=== PATIENT | male | born 1965 | race Hispanic/Latino ===

== ENCOUNTER 2021-07-10 08:54 | Inpatient (IN) | payer OTHER ==
[~2021-07-10] VITALS: Ht 177.8 cm; Wt 95.3 kg
[2021-07-10] VITALS (7 sets, daily range): BP systolic 119–127; BP diastolic 66–76
[2021-07-10 10:04] LABS: BASOPHILS % 0.4 % (0.0-1.0); EOSINOPHILS # (AUTO) 0.1 (0.0-0.4); EOSINOPHILS % 0.5 % (0.0-6.0); HEMATOCRIT 40.9 % (38.2-49.6); HEMOGLOBIN 13.7 g/dL (14.0-18.0); LYMPHOCYTES # (AUTO) 1.7 (1.0-3.2); LYMPHOCYTES % 16.3 % (18.0-39.1); MEAN CORPUSCULAR HEMOGLOBIN 31.8 pg (28-32); MEAN CORPUSCULAR HGB CONC 33.5 g/dL (31-35); MEAN CORPUSCULAR VOLUME 94.9 fL (81-99); MONOCYTES # (AUTO) 0.8 (0.2-0.8); MONOCYTES % 7.7 % (4.4-11.3); NEUTROPHILS % 74.7 % (38.7-80.0); PLATELET COUNT 253 x10e3/uL (140-360); RED BLOOD COUNT 4.31 x10e6/uL (4.3-5.7); RED CELL DISTRIBUTION WIDTH 11.7 % (11.7-14.4)
[2021-07-10 10:19] LABS: ANION GAP 10.6 mmol/L (8-16); CALCIUM 8.5 mg/dL (8.4-10.2); CREATININE, SERUM 0.98 mg/dL (0.72-1.25); POTASSIUM 3.6 mmol/L (3.5-5.1)
[2021-07-10] MEDS ORDERED: Vancomycin IV 1 GM in SODIUM CHLORIDE 0.9% 250ML 250 ML IV ONE (12:15)
[2021-07-10] MEDS: SODIUM CHLORIDE 0.9% 1000ML 1,000 ML IV SCH ×2 (12:28→20:00)
[2021-07-10] MEDS: Morphine 4mg Syringe 4 MG/ML INJ IV PRN ×2 (12:28→21:17)
[2021-07-10] MEDS: ONDANSETRON HCL INJ 2MG/ML 2ML 2 MG/ML VIAL IV PRN ×2 (12:29→21:14)
[2021-07-10] MEDS ORDERED: CEFUROXIME250 MG PO (14:44)
[2021-07-11] VITALS (7 sets, daily range): BP systolic 108–134; BP diastolic 68–86
[2021-07-11] MEDS: SODIUM CHLORIDE 0.9% 1000ML 1,000 ML IV SCH ×3 (02:03→20:00)
[2021-07-11 05:02] LABS: BASOPHILS # (AUTO) 0.1 (0.0-0.1); BASOPHILS % 0.5 % (0.0-1.0); EOSINOPHILS # (AUTO) 0.2 (0.0-0.4); EOSINOPHILS % 1.5 % (0.0-6.0); HEMATOCRIT 39.5 % (38.2-49.6); LYMPHOCYTES % 18.4 % (18.0-39.1); MEAN CORPUSCULAR HEMOGLOBIN 31.3 pg (28-32); MEAN CORPUSCULAR HGB CONC 32.9 g/dL (31-35); MEAN CORPUSCULAR VOLUME 95.2 fL (81-99); MONOCYTES # (AUTO) 1.2 (0.2-0.8); MONOCYTES % 10.7 % (4.4-11.3); NEUTROPHILS # (AUTO) 7.3 (2.1-6.9); NEUTROPHILS % 68.3 % (38.7-80.0); PLATELET COUNT 249 x10e3/uL (140-360); RED BLOOD COUNT 4.15 x10e6/uL (4.3-5.7); RED CELL DISTRIBUTION WIDTH 11.5 % (11.7-14.4)
[2021-07-11 06:06] LABS: ANION GAP 9.5 mmol/L (8-16); CREATININE, SERUM 0.94 mg/dL (0.72-1.25); POTASSIUM 3.5 mmol/L (3.5-5.1)
[2021-07-11 06:28] LABS: CHOL/HDL RATIO 3.4 (3.9-4.7)
[2021-07-11] MEDS: GLIMEPIRIDE 2 MG TAB PO SCH (08:36)
[2021-07-11] MEDS: INSULIN LISPRO 100 UNIT/1 ML 3ML VIAL SQ SCH ×3 (11:58→21:00)
[2021-07-11 19:07] LABS: BASOPHILS # (AUTO) 0.1 (0.0-0.1); BASOPHILS % 0.7 % (0.0-1.0); EOSINOPHILS # (AUTO) 0.2 (0.0-0.4); EOSINOPHILS % 1.8 % (0.0-6.0); HEMATOCRIT 39.9 % (38.2-49.6); LYMPHOCYTES # (AUTO) 2.1 (1.0-3.2); LYMPHOCYTES % 20.7 % (18.0-39.1); MEAN CORPUSCULAR HEMOGLOBIN 31.4 pg (28-32); MEAN CORPUSCULAR HGB CONC 32.6 g/dL (31-35); MEAN CORPUSCULAR VOLUME 96.4 fL (81-99); MONOCYTES # (AUTO) 0.9 (0.2-0.8); MONOCYTES % 9.2 % (4.4-11.3); NEUTROPHILS # (AUTO) 6.9 (2.1-6.9); NEUTROPHILS % 67.3 % (38.7-80.0); PLATELET COUNT 285 x10e3/uL (140-360); RED BLOOD COUNT 4.14 x10e6/uL (4.3-5.7); RED CELL DISTRIBUTION WIDTH 11.7 % (11.7-14.4)
[2021-07-11 19:18] LABS: INR 1.05; PROTHROMBIN TIME 14.6 seconds (11.9-14.5)
[2021-07-11 19:19] LABS: PARTIAL THROMBOPLASTIN TIME 29.3 seconds (23.8-35.5)
[2021-07-11 19:27] LABS: ALBUMIN 2.5 g/dL (3.5-5.0); ALBUMIN/GLOBULIN RATIO 0.6 (0.8-2.0); ANION GAP 13.6 mmol/L (8-16); CALCIUM 8.1 mg/dL (8.4-10.2); CREATININE, SERUM 0.99 mg/dL (0.72-1.25); POTASSIUM 3.6 mmol/L (3.5-5.1)
[2021-07-11] MEDS ORDERED: ENOXAPARIN SOD INJ 40 MG/0.4 ML SYR SC STA (23:40)
[2021-07-12] VITALS (8 sets, daily range): BP systolic 118–139; BP diastolic 71–86
[2021-07-12] MEDS: ACETAMINOPHEN 325 MG TAB PO PRN (00:21)
[2021-07-12] MEDS: SODIUM CHLORIDE 0.9% 1000ML 1,000 ML IV SCH ×3 (04:00→20:27)
[2021-07-12] MEDS: INSULIN LISPRO 100 UNIT/1 ML 3ML VIAL SQ SCH ×4 (07:30→21:00)
[2021-07-12] MEDS: GLIMEPIRIDE 2 MG TAB PO SCH (08:00)
[2021-07-12] MEDS: Morphine 4mg Syringe 4 MG/ML INJ IV PRN (08:48)
[2021-07-12] MEDS: ONDANSETRON HCL INJ 2MG/ML 2ML 2 MG/ML VIAL IV PRN ×2 (08:48→13:35)
[2021-07-12] MEDS ORDERED: SEVOFLURANE INHAL SOLN 250 ML PEN BTL ONE (12:20)
[2021-07-12] MEDS ORDERED: PROPOFOL IV EMULSION 10 MG/ML 20 ML VIAL ONE (12:20)
[2021-07-12] MEDS ORDERED: DEXAMETHASONE SOD PHOS INJ 4 MG/ML SDV ONE (12:20)
[2021-07-12] MEDS ORDERED: POVIDONE IODINE 0.05% 0.05 % ML PO ONE (12:20)
[2021-07-12] MEDS ORDERED: ONDANSETRON HCL INJ 2MG/ML 2ML 2 MG/ML VIAL ONE (12:20)
[2021-07-12] MEDS ORDERED: FENTANYL CITRATE/PF 100MCG/2 ML INJ ONE (13:05)
[2021-07-12] MEDS ORDERED: MIDAZOLAM HCL 2 MG/2 ML VIAL ONE (13:05)
[2021-07-12] MEDS ORDERED: Vancomycin IV 1 GM VIAL ONE ×6 (17:11→18:48)
[2021-07-12] MEDS ORDERED: SODIUM CHLORIDE 0.9% 250ML 0 ML ONE (17:11)
[2021-07-12] MEDS ORDERED: SODIUM CHLORIDE 0.9% 250ML 250 ML ONE (19:11)
[2021-07-12] MEDS ORDERED: HYDROCODONE/APAP 5MG-325MG TAB PO PRN ×2 (19:30→20:30)
[2021-07-12] MEDS ORDERED: HYDROMORPHONE 1MG/1ML INJ ONE (19:40)
[2021-07-12] MEDS ORDERED: HYDROCODONE/APAP 10MG-325MG TAB PO PRN (20:30)
[2021-07-13] VITALS (7 sets, daily range): BP systolic 119–129; BP diastolic 71–81
[2021-07-13] MEDS: ONDANSETRON HCL INJ 2MG/ML 2ML 2 MG/ML VIAL IV PRN ×4 (03:40→21:39)
[2021-07-13] MEDS: Morphine 4mg Syringe 4 MG/ML INJ IV PRN ×4 (03:40→21:39)
[2021-07-13] MEDS: SODIUM CHLORIDE 0.9% 1000ML 1,000 ML IV SCH ×3 (04:56→21:39)
[2021-07-13 05:29] LABS: BASOPHILS % 0.2 % (0.0-1.0); HEMATOCRIT 40.8 % (38.2-49.6); HEMOGLOBIN 13.5 g/dL (14.0-18.0); LYMPHOCYTES # (AUTO) 1.1 (1.0-3.2); LYMPHOCYTES % 12.8 % (18.0-39.1); MEAN CORPUSCULAR HGB CONC 33.1 g/dL (31-35); MEAN CORPUSCULAR VOLUME 93.8 fL (81-99); MONOCYTES # (AUTO) 0.5 (0.2-0.8); MONOCYTES % 5.9 % (4.4-11.3); NEUTROPHILS # (AUTO) 6.7 (2.1-6.9); NEUTROPHILS % 80.7 % (38.7-80.0); PLATELET COUNT 353 x10e3/uL (140-360); RED BLOOD COUNT 4.35 x10e6/uL (4.3-5.7); RED CELL DISTRIBUTION WIDTH 11.2 % (11.7-14.4)
[2021-07-13 06:03] LABS: CALCIUM 8.5 mg/dL (8.4-10.2); CREATININE, SERUM 0.82 mg/dL (0.72-1.25)
[2021-07-13] MEDS: INSULIN LISPRO 100 UNIT/1 ML 3ML VIAL SQ SCH ×4 (08:16→21:00)
[2021-07-13] MEDS: GLIMEPIRIDE 2 MG TAB PO SCH (08:16)
[2021-07-14] VITALS: BP 127/83
[2021-07-14 04:00] VITALS: BP 138/88
[2021-07-14] MEDS: SODIUM CHLORIDE 0.9% 1000ML 1,000 ML IV SCH ×3 (04:30→22:16)
[2021-07-14] MEDS: INSULIN LISPRO 100 UNIT/1 ML 3ML VIAL SQ SCH ×4 (07:30→21:00)
[2021-07-14 07:50] VITALS: BP 140/93
[2021-07-14 08:00] VITALS: BP 140/93
[2021-07-14] MEDS: GLIMEPIRIDE 2 MG TAB PO SCH (08:00)
[2021-07-14 16:16] VITALS: BP 131/81
[2021-07-14 20:00] VITALS: BP 135/86
[2021-07-15] VITALS (7 sets, daily range): BP systolic 128–143; BP diastolic 78–85
[2021-07-15] MEDS: INSULIN LISPRO 100 UNIT/1 ML 3ML VIAL SQ SCH ×4 (07:30→21:00)
[2021-07-15 08:42] LABS: BASOPHILS # (AUTO) 0.1 (0.0-0.1); BASOPHILS % 0.6 % (0.0-1.0); EOSINOPHILS # (AUTO) 0.1 (0.0-0.4); EOSINOPHILS % 1.6 % (0.0-6.0); HEMATOCRIT 43.8 % (38.2-49.6); HEMOGLOBIN 14.2 g/dL (14.0-18.0); LYMPHOCYTES # (AUTO) 2.2 (1.0-3.2); LYMPHOCYTES % 24.9 % (18.0-39.1); MEAN CORPUSCULAR HGB CONC 32.4 g/dL (31-35); MEAN CORPUSCULAR VOLUME 95.6 fL (81-99); MONOCYTES # (AUTO) 0.8 (0.2-0.8); MONOCYTES % 8.7 % (4.4-11.3); NEUTROPHILS # (AUTO) 5.6 (2.1-6.9); NEUTROPHILS % 63.9 % (38.7-80.0); PLATELET COUNT 385 x10e3/uL (140-360); RED BLOOD COUNT 4.58 x10e6/uL (4.3-5.7); RED CELL DISTRIBUTION WIDTH 11.6 % (11.7-14.4)
[2021-07-15 08:59] LABS: ANION GAP 14.1 mmol/L (8-16); CALCIUM 9.6 mg/dL (8.4-10.2); CREATININE, SERUM 0.91 mg/dL (0.72-1.25); POTASSIUM 4.1 mmol/L (3.5-5.1)
[2021-07-15] MEDS: GLIMEPIRIDE 2 MG TAB PO SCH (09:37)
[2021-07-15] MEDS: ACETAMINOPHEN 325 MG TAB PO PRN (21:20)
[2021-07-16] VITALS (7 sets, daily range): BP systolic 117–131; BP diastolic 76–86
[2021-07-16] MEDS: INSULIN LISPRO 100 UNIT/1 ML 3ML VIAL SQ SCH ×4 (07:30→20:37)
[2021-07-16] MEDS: GLIMEPIRIDE 2 MG TAB PO SCH (09:36)
[2021-07-16] MEDS: ACETAMINOPHEN 325 MG TAB PO PRN (09:36)
[2021-07-16] MEDS ORDERED: SODIUM CHLORIDE 0.9% 100 ML ONE (20:38)
[2021-07-17 01:10] VITALS: BP 121/76
[2021-07-17 05:04] VITALS: BP 137/83
[2021-07-17] MEDS: INSULIN LISPRO 100 UNIT/1 ML 3ML VIAL SQ SCH (07:30)
[2021-07-17 08:08] VITALS: BP 133/88
[2021-07-17 08:48] VITALS: BP 133/88
[2021-07-17] MEDS: GLIMEPIRIDE 2 MG TAB PO SCH (09:15)
[2021-07-17] MEDS: ACETAMINOPHEN 325 MG TAB PO PRN (09:24)
[2021-07-17] MEDS ORDERED: KEFLEX125 MG/5 M PO (10:42)
== END 2021-07-17 12:07 | disposition home health service (06) | DRG 481 ==
LOC: ER 09:00 → ERHOLD 12:07 → MED/SURG3 13:37 → OBSVTOIN 07-12 08:44
PROVIDERS: ADMIT Internal Medicine; ATTEND Internal Medicine
PROC: 0SB90ZZ Excision of Right Hip Joint, Open Approach (ICD-10-PCS; 2021-07-12)
PROC: 0MDN4ZZ Extraction of Right Knee Bursa and Ligament, Percutaneous Endoscopic Approach (ICD-10-PCS; 2021-07-12)
PROC: 0S9C40Z Drainage of Right Knee Joint with Drainage Device, Percutaneous Endoscopic Approach (ICD-10-PCS; 2021-07-12)
PROC: 0S9C40Z Drainage of Right Knee Joint with Drainage Device, Percutaneous Endoscopic Approach (ICD-10-PCS; 2021-07-12)
PROC: 0S9C4ZZ Drainage of Right Knee Joint, Percutaneous Endoscopic Approach (ICD-10-PCS; principal; 2021-07-12 18:26)
DX: M71.161 Other infective bursitis, right knee (principal); L03.115 Cellulitis of right lower limb; B95.61 Methicillin susceptible Staphylococcus aureus infection as the cause of diseases classified elsewhere; E11.65 Type 2 diabetes mellitus with hyperglycemia; E83.51 Hypocalcemia; D64.9 Anemia, unspecified
CPT/HCPCS: 36415; 71045; 80048; 80053; 80061; 82948; 83036; 85025; 85610; 85651; 85730; 86140; 86850; 86900; 87071; 87075; 87081; 87186; 87205; 93005; 94799; 97139; 99284; C1713; G0378; J0690; J0692; J1100; J1170; J2250; J2270; J2405; J3010; J3370; J7030; J7050; U0002